=== PATIENT | female | born 1980 | race Caucasian/White ===

== ENCOUNTER 2016-11-11 15:16 | Emergency (ER) | payer OTHER ==
[~2016-11-11] VITALS: Ht 160 cm; Wt 56.8 kg
[2016-11-11 15:17] VITALS: BP 142/78
--- NOTE | 2016-11-11 15:51 | REP ---
Clinical: Trauma. Foreign body. Technique: AP, lateral, bilateral oblique views of the right third digit. Findings: A fractured needle is identified within the soft tissues overlying the distal phalanx. No fracture. No subcutaneous emphysema. Impression: Foreign body in the soft tissues overlying the third digit distal phalanx. Signed by Carlin Ahmadi MD 11/11/2016 03:43 P
[2016-11-11] MEDS ORDERED: ADACEL/BOOSTRIX VACCINE (DIPHTH/PERTUSS/ACELL/TETANUS)0.5ML SYR (90715) IM ONE (16:30)
== END 2016-11-11 16:36 | disposition home or self-care (01) ==
LOC: M ED 15:16
DX: S61.322A Laceration with foreign body of right middle finger with damage to nail, initial encounter (principal); W27.3XXA Contact with needle (sewing), initial encounter; Y92.099 Unspecified place in other non-institutional residence as the place of occurrence of the external cause; Y93.D2 Activity, sewing; Y99.9 Unspecified external cause status

== ENCOUNTER → 2017-02-19 | Outpatient (REF) | payer OTHER | LOC: M SFHCLERA 12:42 | PROVIDERS: ATTEND Family Medicine | DX: Z12.4 Encounter for screening for malignant neoplasm of cervix (principal) ==